=== PATIENT | female | born 1985 | race African-American/Black ===

== ENCOUNTER 2020-10-27 11:47 | Inpatient (IN) ==
[2020-10-27] MEDS: LACTATED RINGERS 1,000 ML IV PRN ×3 (12:20→20:26)
[2020-10-27] MEDS ORDERED: ONDANSETRON 4 MG/2 ML VIAL IV PRN (12:34)
[2020-10-27] MEDS ORDERED: MEPERIDINE 50 MG/1 ML VIAL IV PRN (12:34)
[2020-10-27] MEDS ORDERED: BUTORPHANOL 2 MG/ML VIAL IV PRN (12:34)
[2020-10-27] MEDS ORDERED: BUTORPHANOL 1 MG/ML VIAL IV PRN (12:34)
[2020-10-27] MEDS ORDERED: FAMOTIDINE 20 MG/2 ML VIAL IV ONE (12:45)
[2020-10-27] MEDS ORDERED: CITRIC ACID/SODIUM CITRATE 30 ML UDCUP PO ONE (12:45)
[2020-10-27] MEDS ORDERED: LACTATED RINGERS 1,000 ML IV ONE (12:45)
[2020-10-27] MEDS ORDERED: NALOXONE 0.4 MG/ML VIAL IV PRN (12:46)
[2020-10-27] MEDS ORDERED: diphenhydrAMINE 50 MG/1 ML VIAL IV PRN ×2 (12:46)
[2020-10-27] MEDS ORDERED: hydrOXYzine HCL 25 MG/1 ML VIAL IM PRN (12:46)
[2020-10-27] MEDS ORDERED: PROMETHAZINE 25 MG/1 ML VIAL IM ONE (12:46)
[2020-10-27 12:49] LABS: Basophils % 0.1 % (0.0-0.8); Eosinophils # 0.1 10*3/uL (0.0-0.87); Eosinophils % 0.7 % (0.00-10.9); Hematocrit 37.7 VOL% (35.7-47.0); Hemoglobin 11.8 GM/DL (12.0-16.0); Immature Granulocytes % 1.5 %; Immature Granulocytes Absolute 0.14 #; Lymphocytes # 1.6 10*3/uL (1.4-4.0); Lymphocytes % 16.7 % (21.3-54.2); Mean Corpuscular HGB Conc 31.3 GM/DL (32-36); Mean Corpuscular Volume 89.1 FL (87-102); Mean Platelet Volume 11.3 FL (9.6-12.0); Platelet Count 172 T/CUMM (130-400); Red Blood Count 4.23 MC/CUMM (3.8-5.5); Red Cell Distribution Width 15.1 % (9.3-17.3); White Blood Count 9.4 T/CUMM (4-12)
[2020-10-27] MEDS ORDERED: fentaNYL 2 MCG/ROPIV 0.2% EPID 100 ML EPIDURAL SCH (13:00)
[2020-10-27 13:05] LABS: Albumin 2.6 G/DL (3.4-5.0); Bilirubin,Total 0.6 MG/DL (0.2-1.0); Calcium 8.9 MG/DL (8.5-10.1); INR 0.9; PT Patient Result 9.9 SECS (9.8-11.9); Partial Thromboplastin Time 27.6 SECS (23.9-33.8); Potassium 3.2 MMOL/L (3.5-5.1); Total Protein 6.9 G/DL (6.4-8.3); Uric Acid 3.7 MG/DL (2.6-6.0)
[2020-10-27] MEDS: ePHEDrine 50 MG/ML VIAL IV PRN ×3 (15:02→15:12)
[2020-10-27] MEDS: OXYTOCIN/LR 20 UNIT/1,000 ML BAG IV PRN (16:06)
[2020-10-27 16:28] LABS: Bilirubin,Urine Negative (Negative); Blood, Urine Negative (Negative); Glucose,Urine (UA) Negative (Negative); Ketones,Urine Negative (Negative); Mucus,Urine Occasional /LPF (Occasional); Nitrite,Urine Negative (Negative); Protein,Urine 30 MG/DL; RBC,Urine 7 /HPF (0-4); Squamous Epithelial Cell,Urine Occasional /HPF (0-10); Urine Appearance CLEAR (Clear); Urine Color Yellow (Yellow); Urine Specific Gravity 1.011 (1.001-1.035); Urine Urobilinogen < 2.0 EU/DL (0.2-1.0); WBC,Urine <1 /HPF (0-6)
[2020-10-27] MEDS ORDERED: TRANEXAMIC ACID 1,000 MG/10 ML VIAL ONE (19:58)
[2020-10-27] MEDS ORDERED: miSOPROStoL 200 MCG TABLET ONE (19:58)
[2020-10-27] MEDS ORDERED: OXYTOCIN/LR 20 UNIT/1,000 ML BAG IV ONE (19:58)
[2020-10-27] MEDS ORDERED: CARBOPROST TROMETHAMINE 250 MCG/ML AMP IM ONE (19:59)
[2020-10-27] MEDS ORDERED: SODIUM CHLORIDE 0.9% 0 ML IV ONE (19:59)
[2020-10-27] MEDS ORDERED: METHYLERGONOVINE 0.2 MG/1 ML AMP ONE (19:59)
[2020-10-27] MEDS ORDERED: MAGNESIUM SULF RIDER 100 ML IV ONE (22:23)
[2020-10-27] MEDS ORDERED: LABETALOL 20 MG/4 ML SYRINGE IV ONE (22:25)
[2020-10-27] MEDS ORDERED: MAGNESIUM SULF DRIP 40 GM/1,000 ML ML IV SCH (22:30)
[2020-10-27] MEDS ORDERED: LABETALOL 100 MG/20 ML VIAL IV ONE (23:02)
[2020-10-27 23:54] LABS: Cord Arterial Blood HCO3 20.2 MMOL/L
[2020-10-27 23:57] LABS: Cord Venous Blood HCO3 22.9 MMOL/L; Cord Venous Blood PO2 30.1
[2020-10-28] MEDS: OXYTOCIN/LR 20 UNIT/1,000 ML BAG IV PRN (00:40)
[2020-10-28] MEDS ORDERED: BENZOCAINE 20%/MENTHOL 0.5% SPRAY 56 GM CAN TOP PRN (00:45)
[2020-10-28] MEDS ORDERED: DIPH/TET/ACEL PERT BOOSTER VACCINE 0.5 ML VIAL IM ONE (00:45)
[2020-10-28] MEDS ORDERED: RHO(D) IMMUNE GLOBULIN 300 MCG SYRINGE IM ONE (00:45)
[2020-10-28] MEDS ORDERED: ONDANSETRON 4 MG/2 ML VIAL IV PRN (00:45)
[2020-10-28] MEDS ORDERED: LANOLIN 50% CREAM 0.3 OZ TUBE TOP PRN (00:45)
[2020-10-28] MEDS ORDERED: WITCH HAZEL PADS 100/JAR TOP PRN (00:45)
[2020-10-28] MEDS ORDERED: BISACODYL 10 MG SUPP RECTAL PRN (00:45)
[2020-10-28] MEDS ORDERED: OXYTOCIN/LR 20 UNIT/1,000 ML BAG IV ONE (00:45)
[2020-10-28] MEDS ORDERED: HYDROCORTISONE 2.5% RECTAL CREAM 30 GM TUBE TOP PRN (00:45)
[2020-10-28] MEDS ORDERED: oxyCODONE/ACETAMINOPHEN 5-325 MG TABLET PO PRN ×2 (00:45)
[2020-10-28] MEDS ORDERED: ACETAMINOPHEN 325 MG TABLET PO PRN (00:45)
[2020-10-28] MEDS ORDERED: MEASLES/MUMPS/RUBELLA VACCINE 0.5 ML VIAL SUBCUT ONE (00:45)
[2020-10-28] MEDS ORDERED: LACTATED RINGERS 1,000 ML IV SCH (03:00)
[2020-10-28 03:17] LABS: Bilirubin,Urine Negative (Negative); Blood, Urine Large mg/dL (Negative); Glucose,Urine (UA) Negative (Negative); Ketones,Urine 5 mg/dL (Negative); Mucus,Urine Few /LPF (Occasional); Nitrite,Urine Negative (Negative); Protein,Urine 30 MG/DL; RBC,Urine 1579 /HPF (0-4); Urine Appearance Slightly Hazy (Clear); Urine Color Yellow (Yellow); Urine Specific Gravity 1.019 (1.001-1.035); Urine Urobilinogen < 2.0 EU/DL (0.2-1.0); WBC,Urine 5 /HPF (0-6)
[2020-10-28 05:01] LABS: Basophils # 0.1 10*3/uL (0.0-0.2); Basophils % 0.5 % (0.0-0.8); Eosinophils # 0.1 10*3/uL (0.0-0.87); Eosinophils % 0.4 % (0.00-10.9); Hematocrit 29.7 VOL% (35.7-47.0); Immature Granulocytes Absolute 0.15 #; Lymphocytes # 1.6 10*3/uL (1.4-4.0); Lymphocytes % 10.8 % (21.3-54.2); Mean Corpuscular HGB Conc 32.7 GM/DL (32-36); Mean Corpuscular Volume 87.9 FL (87-102); Mean Platelet Volume 10.9 FL (9.6-12.0); Monocytes % 4.7 % (1.7-12.7); Neutrophils % 82.6 % (38.7-73.9); Platelet Count 145 T/CUMM (130-400); Red Cell Distribution Width 14.8 % (9.3-17.3)
[2020-10-28 05:05] LABS: Red Blood Count 3.38 MC/CUMM (3.8-5.5); White Blood Count 15.2 T/CUMM (4-12)
[2020-10-28 05:06] LABS: Hemoglobin 9.7 GM/DL (12.0-16.0)
[2020-10-28 05:20] LABS: Hypochromasia 1+; Microcytosis 1+; Platelet Estimate Adequate
[2020-10-28] MEDS: DOCUSATE SODIUM 100 MG CAPSULE PO SCH ×2 (10:29→20:49)
[2020-10-28] MEDS: IBUPROFEN 800 MG TABLET PO PRN ×2 (12:39→19:37)
[2020-10-28] MEDS: LABETALOL 200 MG TABLET PO SCH (20:49)
[2020-10-29] MEDS: IBUPROFEN 800 MG TABLET PO PRN ×2 (04:10→12:16)
[2020-10-29] MEDS: LABETALOL 200 MG TABLET PO SCH (08:54)
[2020-10-29] MEDS: DOCUSATE SODIUM 100 MG CAPSULE PO SCH (08:54)
[2020-10-29] MEDS ORDERED: DIPH/TET/ACEL PERT BOOSTER VACCINE 0.5 ML VIAL IM ONE (14:15)
[2020-10-29 15:10] VITALS: BP 144/63
== END 2020-10-29 14:55 | disposition home or self-care (01) | DRG 560 ==
LOC: N.LDOUT 11:47 → N.LD 11:49 → N.OB 10-28 20:55
PROVIDERS: ADMIT Obstetrics & Gynecology; ATTEND Obstetrics & Gynecology